=== PATIENT | female | born 1995 | race African-American/Black ===

== ENCOUNTER 2019-10-17 14:50 | Emergency (ER) | payer OTHER ==
[~2019-10-17] VITALS: Ht 160 cm; Wt 66.2 kg
[2019-10-17] MEDS ORDERED: TETANUS-DIPTH-ACEL PERTUSSIS 0.5ML SYR Tdap IM ONE (15:30)
[2019-10-17 16:14] VITALS: BP 119/88
== END 2019-10-17 15:54 | disposition home or self-care (01) ==
LOC: ER 14:50
DX: T14.8XXA Other injury of unspecified body region, initial encounter (principal); W54.0XXA Bitten by dog, initial encounter; Y93.89 Activity, other specified; Y92.89 Other specified places as the place of occurrence of the external cause; Y99.8 Other external cause status
CPT/HCPCS: 90471; 90715